=== PATIENT | male | born 1985 | race Caucasian/White ===

== ENCOUNTER 2017-09-14 12:07 | Emergency (ER) | payer MEDICAID ==
[2017-09-14 12:24] VITALS: BP 164/78
[2017-09-14] MEDS ORDERED: LORazepam 1 MG Tab PO ONE (13:06)
--- NOTE | 2017-09-14 13:09 | EDM.PDOCBH ---
<OfficerTushar - Last Filed: 09/14/17 14:55> ED HPI GENERAL MEDICAL PROBLEM - General Chief Complaint: Behavioral/Psych Stated Complaint: EVAL;EMERGENCY HOLD Time Seen by Provider: 09/14/17 12:57 Source of Information: Reports: Patient, Police, Provider, RN Notes Reviewed History Limitations: Reports: No Limitations - History of Present Illness INITIAL COMMENTS - FREE TEXT/NARRATIVE: 32-year-old gentleman presents emergency department today via law enforcement for psychiatric evaluation, he has a known history of bipolar 1 has not taken his medications today, was at the behavioral health clinic in town became very agitated as he is currently having issues with a female became very manic upset threatening behavior law enforcement was called to presents emergency department for further evaluation. He does admit to consuming alcohol last night which usually does not do he has not eaten. His father is presents unable to communicate with him he has settled down significantly since initial presentation he is able to tolerate a diet. He feels significantly better he admits that he made some bad choices and said some things that he really does not mean he denies any suicidal ideation or denies harm to anyone else. - Related Data Allergies Allergy/AdvReac Type Severity Reaction Status Date / Time No Known Allergies Allergy Verified 09/14/17 12:17 Home Meds: Home Meds Citalopram [Citalopram HBr] 40 mg PO DAILY 06/24/16 [History] Divalproex Sodium [Depakote ER] 1,500 mg PO BEDTIME 09/14/17 [History] Past Medical History Musculoskeletal History: Reports: Fracture Psychiatric History: Reports: Anxiety, Bipolar, Depression, Psych Hospitalization(s) - Past Surgical History GI Surgical History: Reports: Appendectomy Social & Family History - Family History Psychiatric: Reports: Bipolar - Tobacco Use Smoking Status *Q: Never Smoker - Caffeine Use Caffeine Use: Reports: Soda - Recreational Drug Use Recreational Drug Use: No ED ROS GENERAL - Review of Systems Review Of Systems: See Below Constitutional: Reports: No Symptoms Respiratory: Reports: No Symptoms Cardiovascular: Reports: No Symptoms Psychiatric: Reports: Agitation, Anxiety ED EXAM, BEHAVIORAL HEALTH - Physical Exam Exam: See Below Exam Limited By: No Limitations General Appearance: Alert, WD/WN, No Apparent Distress Respiratory/Chest: No Respiratory Distress, Lungs Clear, Normal Breath Sounds, No Accessory Muscle Use Cardiovascular: Regular Rate, Rhythm, No Murmur GI/Abdominal: Soft, Non-Tender Psychiatric: Alert, Restless, Pressured Speech. No: Homicidal Thoughts, [place] Delusions, Suicidal Plan, Suicidal Thoughts, Auditory Hallucinations, Visual Hallucinations, Threatening Behavior COURSE, BEHAVIORAL HEALTH COMP - Course Vital Signs: Last Vital Signs Temp 36.3 C 09/14/17 12:17 Pulse 79 09/14/17 12:17 Resp 20 09/14/17 12:17 BP 164/78 H 09/14/17 12:17 Pulse Ox 100 09/14/17 12:17 Orders, Labs, Meds: Laboratory Tests 09/14/17 09/14/17 09/14/17 Range/Units 13:14 13:14 13:39 WBC 6.0 (4.5-11.0) K/uL RBC 5.01 (4.30-5.90) M/uL Hgb 14.3 (12.0-15.0) g/dL Hct 43.2 (40.0-54.0) % MCV 86 (80-98) fL MCH 29 (27-31) pg MCHC 33 (32-36) % Plt Count 162 (150-400) K/uL Neut % (Auto) 51 (36-66) % Lymph % (Auto) 26 (24-44) % [place] % (Auto) 19 H (2-6) % Eos % (Auto) 4 (2-4) % Baso % (Auto) 0 (0-1) % Sodium 142 (140-148) mmol/L Potassium 3.6 (3.6-5.2) mmol/L Chloride 105 (100-108) mmol/L Carbon Dioxide 24 (21-32) mmol/L Anion Gap 13.3 (5.0-14.0) mmol/L BUN 14 (7-18) mg/dL Creatinine 1.1 (0.8-1.3) mg/dL Est Cr Clr Drug Dosing 100.47 mL/min Estimated GFR (MDRD) > 60 (>60) Glucose 87 (74-106) mg/dL Calcium 9.1 (8.5-10.1) mg/dL Total Bilirubin 0.5 (0.2-1.0) mg/dL AST 27 (15-37) U/L ALT 25 (12-78) U/L Alkaline Phosphatase 64 (46-116) U/L Total Protein 7.1 (6.4-8.2) g/dL Albumin 3.5 (3.4-5.0) g/dL Globulin 3.6 H (2.3-3.5) g/dL Albumin/Globulin Ratio 1.0 L (1.2-2.2) Urine Color Urine Appearance Urine pH (4.5-8.0) Ur Specific [place] (1.008-1.030) Urine Protein (NEGATIVE) mg/dL Urine Glucose (UA) (NEGATIVE) mg/dL Urine Ketones (NEGATIVE) mg/dL Urine Occult Blood (NEGATIVE) Urine Nitrite (NEGAITVE) Urine Bilirubin (NEGATIVE) Urine Urobilinogen (NORMAL) mg/dL Ur Leukocyte Esterase (NEGATIVE) Urine RBC (0-5) Urine WBC (0-5) Ur Epithelial Cells Amorphous Sediment Urine Bacteria Urine Mucus Urine Opiates Screen Negative (NEGATIVE) Ur Oxycodone Screen Negative (NEGATIVE) Urine Methadone Screen Negative (NEGATIVE) Ur Propoxyphene Screen Negative (NEGATIVE) Ur Barbiturates Screen Negative (NEGATIVE) Ur Tricyclics Screen Negative (NEGATIVE) Ur Phencyclidine Scrn Negative (NEGATIVE) Ur Amphetamine Screen Negative (NEGATIVE) U Methamphetamines Scrn Negative (NEGATIVE) Urine MDMA Screen Negative (NEGATIVE) U Benzodiazepines Scrn Negative (NEGATIVE) U Cocaine Metab Screen Negative (NEGATIVE) U Marijuana (THC) Screen Negative (NEGATIVE) 09/14/17 Range/Units 13:39 WBC (4.5-11.0) K/uL RBC (4.30-5.90) M/uL Hgb (12.0-15.0) g/dL Hct (40.0-54.0) % MCV (80-98) fL MCH (27-31) pg MCHC (32-36) % Plt Count (150-400) K/uL Neut % (Auto) (36-66) % Lymph % (Auto) (24-44) % [place] % (Auto) (2-6) % Eos % (Auto) (2-4) % Baso % (Auto) (0-1) % Sodium (140-148) mmol/L Potassium (3.6-5.2) mmol/L Chloride (100-108) mmol/L Carbon Dioxide (21-32) mmol/L Anion Gap (5.0-14.0) mmol/L BUN (7-18) mg/dL Creatinine (0.8-1.3) mg/dL Est Cr Clr Drug Dosing mL/min Estimated GFR (MDRD) (>60) Glucose (74-106) mg/dL Calcium (8.5-10.1) mg/dL Total Bilirubin (0.2-1.0) mg/dL AST (15-37) U/L ALT (12-78) U/L Alkaline Phosphatase (46-116) U/L Total Protein (6.4-8.2) g/dL Albumin (3.4-5.0) g/dL Globulin (2.3-3.5) g/dL Albumin/Globulin Ratio (1.2-2.2) Urine Color Yellow Urine Appearance Clear Urine pH 7.0 (4.5-8.0) Ur Specific [place] 1.015 (1.008-1.030) Urine Protein Negative (NEGATIVE) mg/dL Urine Glucose (UA) Normal (NEGATIVE) mg/dL Urine Ketones Negative (NEGATIVE) mg/dL Urine Occult Blood Negative (NEGATIVE) Urine Nitrite Negative (NEGAITVE) Urine Bilirubin Negative (NEGATIVE) Urine Urobilinogen 1 (NORMAL) mg/dL Ur Leukocyte Esterase Negative (NEGATIVE) Urine RBC 0-5 (0-5) Urine WBC 0-5 (0-5) Ur Epithelial Cells Rare Amorphous Sediment Not seen Urine Bacteria Not seen Urine Mucus Not seen Urine Opiates Screen (NEGATIVE) Ur Oxycodone Screen (NEGATIVE) Urine Methadone Screen (NEGATIVE) Ur Propoxyphene Screen (NEGATIVE) Ur Barbiturates Screen (NEGATIVE) Ur Tricyclics Screen (NEGATIVE) Ur Phencyclidine Scrn (NEGATIVE) Ur Amphetamine Screen (NEGATIVE) U Methamphetamines Scrn (NEGATIVE) Urine MDMA Screen (NEGATIVE) U Benzodiazepines Scrn (NEGATIVE) U Cocaine Metab Screen (NEGATIVE) U Marijuana (THC) Screen (NEGATIVE) Medications Discontinued Medications Generic Name Dose Route Start Last Admin Trade Name Freq PRN Reason Stop Dose Admin Citalopram Hydrobromide 40 mg 09/14/17 13:10 09/14/17 13:42 Celexa PO 09/14/17 13:11 40 mg ONETIME ONE Administration Divalproex Sodium 500 mg 09/14/17 13:10 Divalproex Sodium PO 09/14/17 13:11 ONETIME ONE Divalproex Sodium 500 mg 09/14/17 13:36 09/14/17 13:46 Divalproex Sodium PO 09/14/17 13:37 500 mg NOW STA Administration Divalproex Sodium 1,000 mg 09/14/17 14:30 09/14/17 14:36 Depakote Er PO 09/14/17 14:31 1,000 mg ONETIME ONE Administration Lorazepam 1 mg 09/14/17 13:06 09/14/17 13:41 Ativan PO 09/14/17 13:07 1 mg .ONETIME ONE Administration Re-Assessment/Re-Exam: Crisis team call for an evaluation Departure - Departure Disposition: Home, Self-Care 01 Clinical Impression: Anxiety, Depression - Discharge Information Referrals: Tyson Gillespie MD [Primary Care Provider] - Forms: ED Department Discharge Care Plan Goals: pt is to resume all meds and take regularly, keep followup appts and stick to the safety contract. <Mary Ann Mendoza - Last Filed: 09/14/17 19:14> COURSE, BEHAVIORAL HEALTH COMP - Course Medical Clearance: 09/14/17 18:37 pt was seen by the crisis team and evaluated. It is the feeling that he can go home cont to be compliant with his meds. . He has missed a dose or 2 of the meds. He has signed a safety contract. He will followup with counseling. Departure - Departure Time of Disposition: 19:13 Condition: Fair
[2017-09-14] MEDS ORDERED: Citalopram 20 MG Tab PO ONE (13:10)
[2017-09-14] MEDS ORDERED: Divalproex Sodium Delayed-Release 250 MG Tab.CR PO ONE (13:10)
[2017-09-14] MEDS ORDERED: Divalproex Sodium Delayed-Release 250 MG Tab.CR PO STA (13:36)
[2017-09-14] MEDS ORDERED: Divalproex Sodium 250 MG Tab.ER PO ONE (14:30)
== END 2017-09-14 19:15 | disposition home or self-care (01) ==
LOC: JP.ED 12:07
DX: F41.9 Anxiety disorder, unspecified (principal); F32.9 Major depressive disorder, single episode, unspecified; Z79.899 Other long term (current) drug therapy
CPT/HCPCS: 36415; 80053; 80305; 81001; 85025; 99284; A9270